=== PATIENT | female | born 1955 | race Caucasian/White ===

== ENCOUNTER 2017-11-26 16:39 | Emergency (ER) | END 2017-11-26 18:56 | disposition home or self-care (01) ==

== ENCOUNTER 2018-03-08 07:53 | Emergency (ER) | payer BC ==
[~2018-03-08] VITALS: Ht 167.6 cm; Wt 69.0 kg
[~2018-03-08 07:53] MED LIST: CLON0.5T14 PO; LORA10TA3 PO
[2018-03-08 07:56] VITALS: Ht 167.6 cm; Wt 69.0 kg
--- NOTE | 2018-03-08 08:17 | ERD ---
ER Documentation Chief Complaint Chief Complaint Complains of SOB since this am HPI 62-year-old female history of dementia and anxiety presents to the ED complaining of shortness of breath. Patient reports acute onset of shortness of breath and feelings of extreme anxiety while sitting in a chair. According to the she has had these symptoms intermittently over the last 2 weeks but worsening recently. Denies chest pain, palpitations, abdominal pain, nausea vomiting. No orthopnea, PND or exertional dyspnea. No URI symptoms or cough. Denies leg pain or swelling. Denies depression, hallucinations or suicidal idea tions. No fevers or chills. ROS All systems reviewed and are negative except as per history of present illness. Medications Home Meds Reported Medications Loratadine* (Loratadine*) 10 Mg Tablet, 10 MG PO DAILY, #30 TAB 11/26/17 Clonazepam* (Clonazepam*) 0.5 Mg Tablet, 0.5 MG PO BID PRN for ANXIETY, TAB 11/26/17 Allergies Allergies: Coded Allergies: codeine (Verified Allergy, Unknown, 11/26/17) PMhx/Soc Reviewed in chart. As per HPI. History of Surgery: No Anesthesia Reaction: No Hx Neurological Disorder: Yes (Dementia) Hx Respiratory Disorders: No Hx Cardiac Disorders: No Hx Miscellaneous Medical Probl: Yes (Anxiety) Hx Alcohol Use: No Hx Substance Use: No Hx Tobacco Use: No FmHx No family history relevant to presenting complaint Physical Exam Vitals Vital Signs Date Temp Pulse Resp B/P (MAP) Pulse Ox O2 O2 Flow FiO2 Time Delivery Rate 03/08/18 90 18 169/90 96 Room Air 10:21 (116) 03/08/18 97.1 80 20 169/97 98 07:56 (121) Physical Exam Const: Moderate distress, anxious Head: Atraumatic Eyes: Pupils equal reactive to light, extraocular movements are intact. No nystagmus. Normal Conjunctiva ENT: Normal External Ears, Nose and Mouth. Neck: Full range of motion. Carotids 2+ bilaterally without bruits. No meningismus. Resp: Breath sounds are equal and clear to auscultation bilaterally Cardio: Regular rate and rhythm, no murmurs Abd: Soft, non tender, non distended. Normal bowel sounds Skin: No petechiae or rashes Back: No midline or flank tenderness Ext: No cyanosis, or edema. No carpopedal spasm. Neur: Awake and alert. Confused. Cranial nerves II through XII are grossly intact. Motor and sensory equal bilaterally. DTRs are symmetrical. Psych: Cooperative. Anxious but not depressed. Result Diagram: 03/08/18 0840 03/08/18 0840 Results 24 hrs Laboratory Tests Test 03/08/18 08:40 White Blood Count 8.3 10^3/ul Red Blood Count 4.68 10^6/ul Hemoglobin 11.9 g/dl Hematocrit 37.4 % Mean Corpuscular Volume 79.9 fl Mean Corpuscular Hemoglobin 25.4 pg Mean Corpuscular Hemoglobin Concent 31.8 g/dl Red Cell Distribution Width 13.7 % Platelet Count 372 10^3/UL Mean Platelet Volume 9.6 fl Immature Granulocytes % 0.200 % Neutrophils % 42.0 % Lymphocytes % 48.8 % Monocytes % 7.4 % Eosinophils % 1.4 % Basophils % 0.2 % Nucleated Red Blood Cells % 0.0 /100WBC Immature Granulocytes # 0.020 10^3/ul Neutrophils # 3.5 10^3/ul Lymphocytes # 4.1 10^3/ul Monocytes # 0.6 10^3/ul Eosinophils # 0.1 10^3/ul Basophils # 0.0 10^3/ul Nucleated Red Blood Cells # 0.0 10^3/ul D-Dimer 295.82 ng/ml D-Dimer Comment Sodium Level 139 mmol/L Potassium Level 3.4 mmol/L Chloride Level 107 mmol/L Carbon Dioxide Level 20 mmol/L Anion Gap 12 Blood Urea Nitrogen 13 mg/dl Creatinine 0.61 mg/dl Est Glomerular Filtrat Rate mL/min > 60 mL/min Glucose Level 117 mg/dl Calcium Level 10.5 mg/dl Total Bilirubin 0.5 mg/dl Direct Bilirubin 0.00 mg/dl Indirect Bilirubin 0.5 mg/dl Aspartate Amino Transf (AST/SGOT) 26 IU/L Alanine Aminotransferase (ALT/SGPT) 21 IU/L Alkaline Phosphatase 90 IU/L Troponin I < 0.012 ng/ml Total Protein 7.2 g/dl Albumin 4.1 g/dl Current Medications Medications Dose Sig/Denita Start Time Status Last (Trade) Ordered Route PRN Stop Time Admin Dose Reason Admin Sodium 500 ml @ Q1H STAT 03/08/18 DC 03/08/18 Chloride 500 mls/hr IV 08:21 08:50 03/08/18 09:20 Lorazepam 1 mg ONCE ONCE 03/08/18 DC 03/08/18 (Ativan) IV 08:30 08:50 03/08/18 08:31 Procedures/MDM DOCUMENTS REVIEWED: ED nurse, prior ED November 2017 EKG: Time: 0849. Sinus rhythm. Ventricular rate 85. Normal MI QRS. No ST segment elevation or depression. Normal axis. No ectopy. My Interpretation IMAGING: Chest AP portable. The cardiac silhouette is normal. The costophrenic angles are clear. No mediastinal widening. No effusions or infiltrates. REEXAMINATION/REEVALUATION: Time: 1008. Improved. No further anxiety or shortness of breath. MED[employer] DECISION MAKIN-year-old female history of dementia and anxiety presents to the ED complaining of anxiety and shortness of breath. CBC significant for mild anemia consistent with prior results but no leukocytosis.. Chemistry reveals mild hypercalcemia of 10.5 mg/dL which is increased from 10.2 on 11/26/2017. No renal insufficiency or other electrolyte abnormalities. Troponin and d-dimer are negative. Liver function tests are normal. Chest x- ray negative for pneumonia, congestive heart failure, pleural effusion or pneumothorax. EKG negative for ischemia, dysrhythmia or heart block. Symptoms completely resolved with Ativan 1 mg IV consistent with diagnosis of acute anxiety exacerbated by the patient's underlying dementia. She has had a long history of similar symptoms with multiple prior workups. No chest pain or signs of ACS. D-dimer is negative in this patient with low risk and no further testing is indicated for pulmonary embolism. If symptoms persist further evaluation of thyroid function would be prudent. Mild hyper calcium Estelle of uncertain etiology and hyperparathyroidism is considered. Stable for discharge with precautionary instructions and outpatient follow-up as counseled. Blood Pressure Assessment: Patient's blood pressure was elevated (>120/80) but appears stable without evidence of hypertension emergency or urgency. The patient was counseled about the risks of hypertension and urged to pursue outpatient monitoring and therapy within a week with their primary care physician. Counseled regarding diagnostic workup, diagnosis and need for followup. Understands that further outpatient evaluation is mandatory and necessity of returning to the ED if symptoms recur, worsen or any other concerns. Departure Diagnosis: Primary Impression: Acute dyspnea Additional Impressions: Acute anxiety Dementia Dementia type: unspecified type Dementia behavioral disturbance: without behavioral disturbance Qualified Codes: F03.90 - Unspecified dementia without behavioral disturbance Hypertension Hypertension type: essential hypertension Qualified Codes: I10 - Essential (primary) hypertension Condition: Stable SAMUEL COPPOLA MD Mar 08, 2018 08:17
[2018-03-08] MEDS ORDERED: SOD CHLORIDE 0.9% 500 ML IV STA (08:21)
[2018-03-08] MEDS ORDERED: LORAZEPAM 2 MG INJ IV ONE (08:30)
[2018-03-08 10:21] VITALS: BP 169/90; PULSE 90; RESP 18
== END 2018-03-08 10:22 | disposition home or self-care (01) ==
LOC: E/R 07:53
DX: R06.00 Dyspnea, unspecified (principal); F41.9 Anxiety disorder, unspecified; F03.90 Unspecified dementia, unspecified severity, without behavioral disturbance, psychotic disturbance, mood disturbance, and anxiety; I10 Essential (primary) hypertension
CPT/HCPCS: 71045; 80048; 80076; 84484; 85025; 85378; 93005; 96374; J2060; J7040; Z7502